=== PATIENT | female | born 1945 | race Two or more races ===

== ENCOUNTER 2017-06-25 21:58 | Inpatient (IN) | payer OTHER ==
[~2017-06-25] VITALS: Ht 157.5 cm; Wt 67.1 kg
[~2017-06-25 21:58] MED LIST: AMLO5TAB2 PO; ASPI-1169 PO; DICL50TA7 PO; GLIP10TA11 PO; LOSA100T15 PO; METF10002 PO; SIMV20TA6 PO; SITA50TA PO; TRAM50TA2 PO
--- NOTE | 2017-06-25 22:05 | NUR ---
TO BED 4 A 71 YO FEMALE PT BIBA#60 FROM HOME, PT C/O FLU LIKE SYMTPOMS X 3 WEEKS. PATIENT IS AAOX4, BREATHING EVEN, PLACED ON CARDIAC AND VS MONITORING. PATIENT NOTED WITH 88% O2 SATURATION ON ROOM AIR, PLACED WITH O2 CANNULA AT 2LPM BY DR NORMAN'S ORDERS. GOWNED PATIENT. COMFORT MEASURES RENDERED.
[2017-06-25] MEDS ORDERED: ALBUTEROL FS 2.5 MG/3 ML VIAL.NEB ONE (22:13)
[2017-06-25] MEDS ORDERED: IPRATROPIUM NEB FS 0.5 MG/2.5 ML AMPUL.NEB ONE (22:13)
--- NOTE | 2017-06-25 22:18 | NUR ---
ONGOING BREATHING TREATMENT BY RT RAZA.
--- NOTE | 2017-06-25 22:20 | NUR ---
STARTED A SALINE LOCK ON THE LAC G18, BLOOD DRAWN AND SENT TO LAB.
[2017-06-25] MEDS ORDERED: ALBUTEROL FS 2.5 MG/3 ML VIAL.NEB NEB ONE (22:30)
[2017-06-25] MEDS ORDERED: IPRATROPIUM NEB FS 0.5 MG/2.5 ML AMPUL.NEB NEB ONE (22:30)
[2017-06-25 22:39] LABS: BASOPHILS % (AUTO) 0.2 % (0.0-2.0); EOSINOPHILS # (AUTO) 0.1 /CMM (0.0-0.7); HEMATOCRIT 35 % (33-45); HEMOGLOBIN 11.5 g/dL (11.5-14.8); LYMPHOCYTES # (AUTO) 1.1 /CMM (0.8-4.8); LYMPHOCYTES % (AUTO) 7.7 % (20.0-44.0); MEAN CORPUSCULAR HEMOGLOBIN 26 PG (26.0-33.0); MEAN CORPUSCULAR HGB CONC 33 g/dl (31.0-36.0); MEAN CORPUSCULAR VOLUME 80 fL (82-100); MONOCYTES # (AUTO) 0.5 /CMM (0.1-1.30); MONOCYTES % (AUTO) 3.4 % (2.0-12.0); NEUTROPHILS # (AUTO) 12.2 /CMM (1.8-8.9); NEUTROPHILS % (AUTO) 87.7 % (43.0-81.0); PLATELET COUNT (AUTO) 375 /CMM (150-450); RDW COEFFICIENT OF VARIATION 14.9 (11.5-15.0); RED BLOOD CELL COUNT(AUTO) 4.39 MIL/uL (4.0-5.2); WHITE BLOOD COUNT (AUTO) 13.9 K/uL (4.3-11.0)
[2017-06-25 22:52] LABS: CALCIUM, SERUM 9.3 mg/dL (8.5-10.1); CREATININE 1.2 mg/dL (0.6-1.3); POTASSIUM 4.7 mmol/L (3.5-5.1)
[2017-06-25 22:58] LABS: TROPONIN I 0.018 ng/mL (0.00-0.056)
[2017-06-25] MEDS ORDERED: MORPHINE SULFATE INJ 2 MG/ML DISP.SYRIN IV ONE (23:30)
--- NOTE | 2017-06-26 | NUR ---
[facility] DR. JHON MCKEON
[2017-06-26 00:05] LABS: APPEARANCE,URINE CLEAR (CLEAR); BILIRUBIN,URINE NEGATIVE (NEGATIVE); BLOOD, URINE 1+ Ery/uL (NEGATIVE); COLOR,URINE YELLOW (YELLOW); KETONES,URINE NEGATIVE (NEGATIVE); LEUKOCYTE ESTERASE ,URINE NEGATIVE (NEGATIVE); NITRITE, URINE NEGATIVE (NEGATIVE); PROTEIN,URINE TRACE mg/dl (NEGATIVE); UGLUCOSE 3+ mg/dL (NEGATIVE); UROBILINOGEN,URINE 0.2 EU/dL (0.2)
[2017-06-26 00:11] LABS: BACTERIA,URINE Few /HPF (None Seen)
[2017-06-26 00:12] LABS: SQUAMOUS EPITHELIAL CELL,UR Few /HPF (None Seen)
--- NOTE | 2017-06-26 00:20 | NUR ---
REPORT GIVEN TO SASCHA NORRIS FOR ADMISSION AND DELIA.
[2017-06-26] MEDS ORDERED: IV NS 0.9% 1,000 ML IV PRN (00:22)
[2017-06-26] MEDS ORDERED: Z GUARD REMEDY 2 OZ OINT TP PRN (00:30)
[2017-06-26] MEDS ORDERED: ZOLPIDEM TARTRATE 5 MG TABLET PO PRN (00:30)
[2017-06-26] MEDS ORDERED: DEXTROSE 50%-WATER 50 ML DISP.SYRIN IV PRN ×2 (00:30→12:30)
[2017-06-26] MEDS ORDERED: ACETAMINOPHEN 325 MG TABLET PO PRN (00:30)
[2017-06-26] MEDS ORDERED: MAGNESIUM HYDROXIDE 30 ML UDC PO PRN (00:30)
[2017-06-26] MEDS ORDERED: MAG HYDROX/AL HYDROX/SIMETH 30 ML UDC PO PRN (00:30)
[2017-06-26] MEDS ORDERED: INSULIN REGULAR, HUMAN 100 UNIT/ML 3 ML VIAL SQ PRN (00:30)
[2017-06-26] MEDS ORDERED: ONDANSETRON HCL/PF 4 MG/2 ML VIAL IVP PRN (00:30)
[2017-06-26] MEDS ORDERED: HYDROCODONE/APAP 5/325MG 1 EACH TABLET PO PRN (00:30)
--- NOTE | 2017-06-26 00:34 | NUR ---
TRANSFERRED PATIENT TO TELE BED 114-1 VIA ALS PROTOCOL, NO INCIDENT NOTED.
[2017-06-26] MEDS ORDERED: ACETAMINOPHEN 325 MG TABLET ONE (01:11)
[2017-06-26] MEDS ORDERED: CEFTRIAXONE 1 G VIAL ONE (01:12)
[2017-06-26] MEDS: CEFTRIAXONE 1 G in IV D5W 50 ML IV SCH ×2 (01:19→23:24)
[2017-06-26 01:20] VITALS: BP 142/60
[2017-06-26 04:00] VITALS: BP 112/43
[2017-06-26] MEDS ORDERED: BLOOD SUGAR DIAGNOSTIC 1 EACH STRIP IN SCH (07:30)
[2017-06-26 08:00] VITALS: BP 129/46
[2017-06-26] MEDS ORDERED: LINAGLIPTIN 5 MG TABLET PO SCH (09:00)
[2017-06-26] MEDS ORDERED: SITAGLIPTIN PHOSPHATE 50 MG TABLET PO SCH (09:00)
[2017-06-26] MEDS ORDERED: glipiZIDE 10 MG TABLET PO SCH (09:00)
[2017-06-26] MEDS: TRAMADOL HCL 50 MG TABLET PO SCH ×2 (09:39→19:19)
[2017-06-26] MEDS: ASPIRIN 81 MG TAB.CHEW PO SCH (09:39)
[2017-06-26] MEDS: AMLODIPINE BESYLATE 5 MG TABLET PO SCH (09:41)
[2017-06-26] MEDS ORDERED: OSELTAMIVIR PHOSPHATE 75 MG CAPSULE PO SCH (11:30)
[2017-06-26] MEDS: IPRATROPIUM NEB FS 0.5 MG/2.5 ML AMPUL.NEB NEB SCH ×2 (13:20→19:27)
[2017-06-26] MEDS: ALBUTEROL FS 2.5 MG/0.5 ML VIAL.NEB NEB SCH ×2 (13:20→19:27)
[2017-06-26] MEDS: methylPREDNISolone SOD SUCC 125 MG/2ML VIAL IV SCH ×3 (13:37→23:23)
[2017-06-26] MEDS: AZITHROMYCIN 250 MG TABLET PO SCH (13:38)
[2017-06-26] MEDS: INSULIN LISPRO SQ PRN ×3 (14:31→21:28)
[2017-06-26] MEDS: [UNRECOGNIZED DRUG - OTHER] SQ PRN ×3 (14:31→21:28)
[2017-06-26] MEDS: NOVOLOG SQ PRN ×3 (14:31→21:28)
[2017-06-26 16:00] VITALS: BP 117/50
[2017-06-26] MEDS: BLOOD SUGAR DIAGNOSTIC 1 EACH STRIP IN SCH ×2 (17:30→21:26)
[2017-06-26] MEDS: SIMVASTATIN 20 MG TABLET PO SCH (19:19)
[2017-06-26 20:42] VITALS: BP 105/38
[2017-06-26] MEDS: GUAIFENESIN LA 600 MG TABLET.SA PO SCH (21:26)
--- NOTE | 2017-06-26 21:49 | NUR ---
MS-1/ASSOCIATE BROKER REPORT TO VAL NORRIS FOR CONT OF CARE.
--- NOTE | 2017-06-26 21:49 | NUR ---
MS RN RECEIVED REPORT AND CARE OF PATIENT FROM JENNIFER RUIZ
[2017-06-27] MEDS: ALBUTEROL FS 2.5 MG/0.5 ML VIAL.NEB NEB SCH ×4 (01:30→19:14)
[2017-06-27] MEDS: IPRATROPIUM NEB FS 0.5 MG/2.5 ML AMPUL.NEB NEB SCH ×4 (01:30→19:14)
[2017-06-27 04:00] VITALS: BP 98/36
[2017-06-27] MEDS: methylPREDNISolone SOD SUCC 125 MG/2ML VIAL IV SCH ×4 (05:04→23:10)
[2017-06-27 08:00] VITALS: BP 111/49
[2017-06-27] MEDS: ASPIRIN 81 MG TAB.CHEW PO SCH (08:01)
[2017-06-27] MEDS: BLOOD SUGAR DIAGNOSTIC 1 EACH STRIP IN SCH ×4 (08:02→21:43)
[2017-06-27] MEDS: TRAMADOL HCL 50 MG TABLET PO SCH ×2 (08:02→17:15)
[2017-06-27] MEDS: GUAIFENESIN LA 600 MG TABLET.SA PO SCH ×2 (08:02→20:19)
[2017-06-27] MEDS: AMLODIPINE BESYLATE 5 MG TABLET PO SCH (08:03)
[2017-06-27] MEDS: [UNRECOGNIZED DRUG - OTHER] SQ PRN ×4 (08:04→21:59)
[2017-06-27] MEDS: INSULIN LISPRO SQ PRN ×4 (08:04→21:59)
[2017-06-27] MEDS: NOVOLOG SQ PRN ×4 (08:04→21:59)
[2017-06-27 08:13] LABS: BASOPHILS % (AUTO) 0.1 % (0.0-2.0); EOSINOPHILS % (AUTO) 0.2 % (0.0-6.0); HEMATOCRIT 31 % (33-45); HEMOGLOBIN 10.2 g/dL (11.5-14.8); LYMPHOCYTES % (AUTO) 6.8 % (20.0-44.0); MEAN CORPUSCULAR HEMOGLOBIN 26 PG (26.0-33.0); MEAN CORPUSCULAR HGB CONC 33 g/dl (31.0-36.0); MEAN CORPUSCULAR VOLUME 79 fL (82-100); MONOCYTES # (AUTO) 0.1 /CMM (0.1-1.30); MONOCYTES % (AUTO) 0.7 % (2.0-12.0); NEUTROPHILS # (AUTO) 13.6 /CMM (1.8-8.9); NEUTROPHILS % (AUTO) 92.2 % (43.0-81.0); PLATELET COUNT (AUTO) 320 /CMM (150-450); RDW COEFFICIENT OF VARIATION 13.5 (11.5-15.0); RED BLOOD CELL COUNT(AUTO) 3.95 MIL/uL (4.0-5.2); WHITE BLOOD COUNT (AUTO) 14.8 K/uL (4.3-11.0)
[2017-06-27 08:30] LABS: ALBUMIN 3.1 g/dL (3.4-5.0); BILIRUBIN,TOTAL 0.2 mg/dL (0.2-1.0); MAGNESIUM 2.1 mg/dL (1.8-2.4); PHOSPHORUS 2.6 mg/dL (2.5-4.9); POTASSIUM 4.3 mmol/L (3.5-5.1); TOTAL PROTEIN, SERUM 8.1 g/dL (6.4-8.2)
[2017-06-27 08:33] LABS: CREATINE KINASE MB 1.5 ng/mL (0-3.6); THYROID STIMULATING HORMONE 0.484 uIU/mL (0.358-3.74)
[2017-06-27 08:40] LABS: PROTHROMBIN TIME 10.4 SECS (9.5-12.7)
[2017-06-27 10:10] LABS: ABG BASE EXCESS -1.2 mmol/L; ABG OXYGEN SATURATION 90.7 % (92.0-98.5); ABG PCO2 40.5 mmHg (35.0-45.0); ABG PH 7.385 (7.350-7.450); AaDO2 39.2 mmHg; COHb 0.2 % (0.5-1.5); MetHb 0.3 % (0.0-1.5); O2Hb 90.2 % (94.0-97.0); SITE, ABG Left Radial; VENT MODE, BG ROOM AIR
[2017-06-27] MEDS: AZITHROMYCIN 250 MG TABLET PO SCH (12:12)
[2017-06-27 16:00] VITALS: BP 107/40
[2017-06-27] MEDS: LACTOBACILLUS RHAMNOSUS GG 1 EACH CAP.SPRINK PO SCH (17:14)
[2017-06-27] MEDS: SIMVASTATIN 20 MG TABLET PO SCH (17:15)
--- NOTE | 2017-06-27 18:57 | NUR ---
NO SIGNIFICANT CHANGES IN PATIENT CONDITION THROUGHOUT THE SHIFT. NO SOB OR DISTRESS NOTED AT THIS TIME. PATIENT DENIES PAIN. BED IN A LOW POSITION, CALL LIGHT WITHIN PATIENT REACH. WILL ENDORSE FOR DELIA.
[2017-06-27 20:00] VITALS: BP 114/44
--- NOTE | 2017-06-27 20:00 | NUR ---
MS1/RN NOTES PATIENT IN BED, ALERT, ORIENTED, ABLE TO VERBALIZE NEEDS IN SIMPLE [place], ON 2 LITER OXYGEN VIA NASAL CANULA WITH NOTED COUGH, SKIN WARM TO TOUCH, BED I LOCK POSITION, REPORTED NO BM FOR 2 DAYS , WILL GIVE NEEDED MOM. BED AL;ARM ON.
[2017-06-27] MEDS: CEFTRIAXONE 1 G in IV D5W 50 ML IV SCH (23:47)
[2017-06-28] MEDS: IPRATROPIUM NEB FS 0.5 MG/2.5 ML AMPUL.NEB NEB SCH ×3 (01:30→13:55)
[2017-06-28] MEDS: ALBUTEROL FS 2.5 MG/0.5 ML VIAL.NEB NEB SCH ×3 (01:30→13:55)
[2017-06-28 03:49] VITALS: BP 91/37
[2017-06-28] MEDS: methylPREDNISolone SOD SUCC 125 MG/2ML VIAL IV SCH (05:19)
--- NOTE | 2017-06-28 06:57 | NUR ---
MS/RN CLOSING NOTES PATIENT ABLE TO SLEEP DURING THE NIGHT , COOPERATIVE TO CARE, ALERT, ORIENTED X3. MONITORING FOR HYPO/HYPERGLYCEMIA, ASSISTED TO CARE, CALL LIGHTS WITHIN REACH,SKIN WARM TO TOUCH. BED IN LOCK POSITION. WILL ENDORSE TO AM RN FOR DELIA.
--- NOTE | 2017-06-28 07:14 | NUR ---
MS RN OPENING NOTE RECEIVED BEDSIDE SBAR REPORT ON THE PATIENT. PATIENT IS A/O X3, AWAKE AND RESPONSIVE. [place]ALL[place] SPEAKING WITH LITTLE UNDERSTANDING OF ESTONIAN. DENIES PAIN/DISCOMFORT AT THIS TIME. CHEST IS RISING EQUALLY BILATERALLY. SPO2 97% VON 2L O2 VIA NASAL CANNULA. PATIENT IS IN BED. BED IS LOCKED, IN LOWEST POSITION, SIDE RAILS UP X2, CALL LIGHT WITHIN REACH. PATIENT IS EDUCATED TO USE THE CALL LIGHT TO CALL FOR ASSISTANCE VIA TEACH BACK METHOD. VERBALIZED UNDERSTANDING. ALL NEEDS ARE MET AT THIS TIME. WILL CONTINUE TO ASSESS/MONITOR THROUGHOUT THE SHIFT.
[2017-06-28 08:00] VITALS: BP 91/37
--- NOTE | 2017-06-28 08:20 | NUR ---
DOCUMENTKIRA JERONIMO NON-ADMIN TO RID OF THE LOGISTICS INTERN'S MISSED MEDICATION REMINDER. NON-ADMINISTERED BY LOGISTICS INTERN.
[2017-06-28] MEDS: BLOOD SUGAR DIAGNOSTIC 1 EACH STRIP IN SCH ×3 (08:43→17:30)
[2017-06-28] MEDS: INSULIN LISPRO SQ PRN ×2 (08:47→11:52)
[2017-06-28] MEDS: [UNRECOGNIZED DRUG - OTHER] SQ PRN ×2 (08:47→11:52)
[2017-06-28] MEDS: NOVOLOG SQ PRN ×2 (08:47→11:52)
[2017-06-28] MEDS: LACTOBACILLUS RHAMNOSUS GG 1 EACH CAP.SPRINK PO SCH ×2 (08:49→17:00)
[2017-06-28] MEDS: GUAIFENESIN LA 600 MG TABLET.SA PO SCH (08:49)
[2017-06-28] MEDS: ASPIRIN 81 MG TAB.CHEW PO SCH (08:49)
[2017-06-28 08:52] VITALS: BP 122/62
[2017-06-28] MEDS: TRAMADOL HCL 50 MG TABLET PO SCH ×2 (08:52→17:00)
[2017-06-28] MEDS: AMLODIPINE BESYLATE 5 MG TABLET PO SCH (08:52)
[2017-06-28] MEDS ORDERED: BISACODYL (5 MG) 5 MG TABLET.DR PO ONE (11:00)
[2017-06-28] MEDS ORDERED: BISACODYL SUPP (10 MG) 10 MG/SUPP.RECT SUPP.RECT RC PRN (11:00)
[2017-06-28] MEDS ORDERED: POLYETHYLENE GLYCOL 3350 17 GM POWD.PACK PO SCH (11:00)
[2017-06-28] MEDS ORDERED: AZIT250T13 PO (11:17)
--- NOTE | 2017-06-28 12:08 | NUR ---
PATIENT'S BG 404MG/DL. PER PROTOCOL 10UNITS INSULIN GIVEN AND DR. KIRK NOTIFIED. NO NEW ORDERS RECEIVED AT THIS TIME.
[2017-06-28] MEDS: AZITHROMYCIN 250 MG TABLET PO SCH (12:30)
[2017-06-28] MEDS: SIMETHICONE SUSP 40 MG/0.6 ML BOTTLE PO SCH ×2 (13:00→17:00)
--- NOTE | 2017-06-28 13:00 | NUR ---
PATIENT REFUSED MEDICATIONS DUE STATING SHE WILL TAKE THE ANTIBIOTIC/MEDICATIONS UPON DISCHARGE AT HOME
--- NOTE | 2017-06-28 17:23 | NUR ---
MS ENTERPRISE BUSINESS ARCHITECT NOTE DISCHARGE ORDER RECEIVED. DISCHARGE EDUCATION PROVIDED. ALL BELONGINGS ACCOUNTED FOR. IV CATHETER REMOVED WITH THE TIP INTACT. OCLUSIVE DRESSING APPLIED. ALL NEEDS ARE MET. PATIENT IS LEAVING THE UNIT IN STABLE CONDITION ACCOMPANIED BY THE FAMILY MEMBERS TO LEAVE THE HOSPITAL VIA PRIVATE CARE.
[2017-06-28] MEDS: SIMVASTATIN 20 MG TABLET PO SCH (17:46)
== END 2017-06-28 18:04 | disposition home or self-care (01) | DRG 189 ==
LOC: ER 22:00 → TELE1 06-26 00:13 → MEDSG1 06-26 11:20
PROVIDERS: ADMIT Internal Medicine; ATTEND Internal Medicine
DX: J96.01 Acute respiratory failure with hypoxia (principal); J45.21 Mild intermittent asthma with (acute) exacerbation; J20.9 Acute bronchitis, unspecified; I10 Essential (primary) hypertension; Z79.82 Long term (current) use of aspirin; Z79.899 Other long term (current) drug therapy; Z79.84 Long term (current) use of oral hypoglycemic drugs; K21.9 Gastro-esophageal reflux disease without esophagitis; E11.9 Type 2 diabetes mellitus without complications
CPT/HCPCS: 36415; 36600; 71045-TC; 80048-TC; 80053-TC; 80061-TC; 81000-TC; 82553-TC; 82746; 82803-TC; 82962-TC; 83540-TC; 83605-TC; 83735-TC; 83880; 84100-TC; 84443-TC; 84484-TC; 85025-TC; 85730-TC; 87040-TC; 87081-TC; 87086-TC; 87400; 93307-TC; 94799-TC; A4606; J0696; J1815; J2930; J7030; J7060; Z7610